=== PATIENT | female | born 1965 | race Caucasian/White ===

== ENCOUNTER 2016-12-13 21:04 | Emergency (ER) | payer MEDICAID, OTHER ==
[~2016-12-13] VITALS: Ht 154.9 cm; Wt 52.8 kg
[~2016-12-13 21:04] MED LIST: CHLO.12%30 SWISH-SPIT; CLIN150 PO; IBUP800T23 PO; MMW SWISH-SPIT; PRED20 PO; SYNT25TA PO
[2016-12-13 21:15] VITALS: O2SAT 98
[2016-12-13 21:36] VITALS: BP 104/83; PULSE 67; RESP 16; TEMP 98; O2SAT 98
[2016-12-14 00:40] VITALS: BP 112/71; PULSE 89; RESP 18; TEMP 98; O2SAT 97
[2016-12-14 02:30] VITALS: BP 114/71; PULSE 82; RESP 18; O2SAT 98
--- NOTE | 2016-12-14 02:48 | RADHPO ---
EXAM DATE/TIME: 12/14/2016 01:32 [facility] COMPARISON: No previous studies available for comparison. INDICATIONS : Cough, shortness of breath for 24 hours MEDICAL HISTORY : None. SURGICAL HISTORY : None. ENCOUNTER: Initial ACUITY: 1 day PAIN SCORE: 0/10 LOCATION: Bilateral chest FINDINGS: The cardiac silhouette is enlarged in transverse diameter. The lungs are free of acute parenchymal op acity. No effusions are identified. Osseous structures are intact. CONCLUSION: Cardiomegaly. No acute cardiopulmonary disease. Giovani Lou MD on December 14, 2016 at 2:46 Board Certified Radiologist. This report was verified electronically.
[2016-12-14] MEDS ORDERED: ZITHTAB PO (03:50)
--- NOTE | 2016-12-14 03:50 | PD ---
HPI Chief Complaint: Cold / Flu Symptoms Time Seen by Provider: 01:15 Travel History International Travel<30 days: No Contact w/Intl Traveler<30days: No Traveled to known affect area: No History of Present Illness HPI 51 year-old female presents to the emergency department for complaint of sinus congestion and cough for the past 2 days. Patient did not have the flu vaccine. Patient has used [id number] medications without relief. Patient complains of frontal headache that worsens with bending forward. Patient complains of increasing sinus congestion and presents for further evaluation. Patient is unable to identify other concerns or complaints no chest pain no abdominal pain no vomiting no diarrhea no dysuria frequency or urgency no joint pain or swelling or skin rash. PFSH Past Medical History Narrative Medical Anemia hypothyroidism previous heart surgery at age 13 pneumonia no tobacco use nursing notes reviewed Anemia: Yes Diminished Hearing: No Endocrine: Yes (Hypothyroid) Thyroid Disease: Yes Tetanus Vaccination: > 5 Years Influenza Vaccination: No ?: Unknown Menopausal: Yes Past Surgical History Cardiac Surgery: Yes ("heart surgery 14 years ago" fluid around heart removed) Hysterectomy: Yes Other Surgery: Yes (CHEST TUBE ON LEFT FROM PNEUMONIA) Social History Alcohol Use: No Tobacco Use: No Substance Use: No Allergies-Medications (Allergen,Severity, Reaction): Coded Allergies: No Known Allergies (Verified , 06/28/16) Reported Meds & Prescriptions Reported Meds & Active Scripts Active Zithromax Z-Ki (Azithromycin) 250 Mg Dspk 250 Mg PO DIRECTED 500 MG (2 tabs) day 1, then 1 tab days 2-5. Reported Synthroid (Levothyroxine Sodium) 25 Mcg Tab 25 Mcg PO DAILY Review of Systems Except as stated in HPI: all other systems reviewed are Neg General / Constitutional: Positive: Chills, No: Fever HENT: Positive: Headaches, Congestion, No: Nosebleed Cardiovascular: No: Chest Pain or Discomfort Respiratory: Positive: Cough Gastrointestinal: No: Vomiting, Abdominal Pain Genitourinary: No: Flank Pain Skin: No Rash Neurologic: No: Weakness Psychiatric: No: Anxiety Hematologic/Lymphatic: No: Lymph Node Enlargement Physical Exam Narrative GENERAL: Well-developed well-nourished female in no acute distress no respiratory distress SKIN: Warm and dry. HEAD: Normocephalic. EYES: No scleral icterus. No injection or drainage. ENT: Airway is patent NECK: Supple, trachea midline. No JVD or lymphadenopathy. No meningismus no nuchal rigidity CARDIOVASCULAR: Regular rate and rhythm without murmurs, gallops, or rubs. RESPIRATORY: Breath sounds equal bilaterally. No accessory muscle use. GASTROINTESTINAL: Abdomen soft, non-tender, nondistended. MUSCULOSKELETAL: No cyanosis, or edema. BACK: Nontender without obvious deformity. No CVA tenderness. Data Data Last Documented VS Vital Signs Date Time Temp Pulse Resp B/P Pulse Ox O2 Delivery O2 Flow Rate FiO2 12/14/16 02:30 82 18 114/71 98 Room Air 12/14/16 00:40 98.0 Orders Chest, Single Ap (12/14/16 ) Influenzae A/B Antigen (12/14/16 01:15) Group A Rapid Strep Screen (12/14/16 01:15) Strep Culture (Group A) (12/14/16 01:20) MDM Medical Decision Making Medical Screen Exam Complete: Yes Emergency Medical Condition: Yes Medical Record Reviewed: Yes Interpretation(s) Rapid strep antigen: Negative Influenza A/B/antigen negative Last Impressions Chest X-Ray 12/14/16 0000 Signed Impressions: Service Date/Time: Wednesday, December 14, 2016 01:32 - CONCLUSION: Cardiomegaly. No acute cardiopulmonary disease. Giovani Lou MD Differential Diagnosis Acute sinusitis, rhinosinusitis, bronchitis, pneumonia Narrative Course Specimens collected and sent for resulting chest x-ray ordered Imaging study no evidence for pneumonia rapid strep antigen negative influenza A /B- plan to start patient on azithromycin Prescription written and identified by patient's nurse to have left without completion of evaluation; informed to notify patient if prescriptions are available. Diagnosis Primary Impression: Sinusitis Referrals: Primary Care Physician call for appointment Patient Instructions: General Instructions Departure Forms: Tests/Procedures, Work Release Special Instructions: no work x 1 day Med/Other Pt SpecificInfo: Prescription(s) given Scripts Azithromycin (Zithromax Z-Ki)250 Mg [id number] Mg PO DIRECTED #1 DSPK Ref 0 500 MG (2 tabs) day 1, then 1 tab days 2-5. Prov:Aisha Bell MD 12/14/16 Disposition: 01 DISCHARGE HOME Condition: Stable Aisha Bell MD Dec 14, 2016 03:50
[2016-12-14] MEDS ORDERED: SYNT25TA PO (06:25)
== END 2016-12-14 03:50 | disposition left against medical advice (07) ==
LOC: PHED 21:04
DX: D64.9 Anemia, unspecified (principal); E03.9 Hypothyroidism, unspecified; J32.9 Chronic sinusitis, unspecified
CPT/HCPCS: 71010; 87081; 87804; 87880; 99283

== ENCOUNTER 2017-08-19 09:23 | Emergency (ER) | payer MEDICAID ==
[~2017-08-19] VITALS: Ht 154.9 cm; Wt 52.5 kg
[~2017-08-19 09:23] MED LIST changes: -CHLO.12%30 SWISH-SPIT; -CLIN150 PO; -IBUP800T23 PO; -MMW SWISH-SPIT; -PRED20 PO; +ZITHTAB PO
[2017-08-19 09:27] VITALS: BP 119/69; PULSE 69; RESP 16; TEMP 98.5; O2SAT 100
--- NOTE | 2017-08-19 09:45 | PD ---
HPI . Sore throat Chief Complaint: ENT Complaint Time Seen by Provider: 09:37 Travel History International Travel<30 days: No Contact w/Intl Traveler<30days: No Traveled to known affect area: No History of Present Illness HPI This patient presents with a chief complaint of a sore throat. Onset was a couple of days ago. It is associated with a fever and nasal congestion. Said her son has the same thing but that he has not sought medical care. His symptoms are spontaneously improving. She believes that her symptoms are worse than his. She describes a burning sensation in her throat which she rates as 8/ 10. It is exacerbated by swallowing. She reports associated swelling of her glands. ON LICENSE OF [facility] Past Medical History Anemia: Yes Diminished Hearing: No Endocrine: Yes (Hypothyroid) Thyroid Disease: Yes Menopausal: Yes Past Surgical History Cardiac Surgery: Yes ("heart surgery 14 years ago" fluid around heart removed) Hysterectomy: Yes Other Surgery: Yes (CHEST TUBE ON LEFT FROM PNEUMONIA) Social History Alcohol Use: No Tobacco Use: No Substance Use: No Allergies-Medications (Allergen,Severity, Reaction): Coded Allergies: No Known Allergies (Verified , 08/19/17) Reported Meds & Prescriptions Reported Meds & Active Scripts Active Reported Synthroid (Levothyroxine Sodium) 25 Mcg Tab 100 Mcg PO DAILY Review of Systems Except as stated in HPI: all other systems reviewed are Neg General / Constitutional: Positive: Fever, Chills HENT: Positive: Sore Throat, Congestion Hematologic/Lymphatic: Positive: Lymph Node Enlargement Physical Exam Narrative GENERAL: Awake and alert and in no acute distress. SKIN: warm/dry. No rash or lesions. HEAD: Normocephalic. Atraumatic. EYES: Pupils equal and round. No scleral icterus. No injection or drainage. ENT: No nasal bleeding or discharge. Mucous membranes pink and moist. Minimal erythema of the oropharynx. No tonsillar enlargement or exudate. No peritonsillar swelling. NECK: Trachea midline. Full range of motion without pain.. Bilateral anterior cervical lymphadenopathy. CARDIOVASCULAR: Regular rate and rhythm. RESPIRATORY: No accessory muscle use. Clear to auscultation. Breath sounds equal bilaterally. MUSCULOSKELETAL: No obvious deformities. NEUROLOGICAL: Awake and alert. No obvious cranial nerve deficits. Motor grossly within normal limits. Normal speech. PSYCHIATRIC: Appropriate mood and affect; insight and judgment normal. Data Data Last Documented VS Vital Signs Date Time Temp Pulse Resp B/P (MAP) Pulse Ox O2 Delivery O2 Flow Rate FiO2 08/19/17 09:27 98.5 69 16 119/69 (86) 100 Orders Orders Group A Rapid Strep Screen (08/19/17 09:37) Strep Culture (Group A) (08/19/17 09:40) MDM Medical Decision Making Medical Screen Exam Complete: Yes Emergency Medical Condition: Yes Differential Diagnosis Differential diagnosis of sore throat includes but is not limited to viral illness, strep throat, mononucleosis, retropharyngeal abscess, peritonsillar abscess Narrative Course This patient presents with a sore throat and fever. She also has nasal congestion. I suspect a viral URI. Rapid strep screen is pending. Rapid strep is negative. Diagnosis Primary Impression: Pharyngitis Qualified Codes: J02.9 - Acute pharyngitis, unspecified Patient Instructions: General Instructions, Pharyngitis (DC) Additional Instructions: Warm salt water gargles. Throat lozenges. Tylenol and/or ibuprofen as needed for fever, body aches and throat pain. Disposition: 01 DISCHARGE HOME Condition: Stable Tavia Rossi MD Aug 19, 2017 09:45
== END 2017-08-19 10:33 | disposition home or self-care (01) ==
LOC: PHED 09:23
DX: J02.9 Acute pharyngitis, unspecified (principal); R50.9 Fever, unspecified; R09.81 Nasal congestion; R59.0 Localized enlarged lymph nodes; E03.9 Hypothyroidism, unspecified; Z86.2 Personal history of diseases of the blood and blood-forming organs and certain disorders involving the immune mechanism
CPT/HCPCS: 87081; 87880; 99283

== ENCOUNTER 2018-01-20 08:03 | Emergency (ER) | payer MEDICAID ==
[~2018-01-20] VITALS: Ht 154.9 cm; Wt 52.6 kg
[~2018-01-20 08:03] MED LIST changes: -ZITHTAB PO
[2018-01-20 08:08] VITALS: BP 114/56; PULSE 63; RESP 16; TEMP 97.9; O2SAT 98
[2018-01-20] MEDS ORDERED: CHOL MED (08:11)
[2018-01-20] MEDS ORDERED: LEVO125T4 PO (08:11)
--- NOTE | 2018-01-20 08:32 | PD ---
HPI Chief Complaint: Pain: Acute or Chronic Time Seen by Provider: 08:31 Travel History International Travel<30 days: No Contact w/Intl Traveler<30days: No Traveled to known affect area: No History of Present Illness HPI 52-year-old female came to the emergency room with history of right sided scapular pain for past 3-4 days that radiates now to the front of the chest close to the apex. Patient says that taking a deep breath hurts as well as moving the right arm especially lifting her arm up. Patient works in [employer] and carries a lot of heavy stuff. Patient does not recall falling or injuring herself however. Patient has history of high cholesterol and thyroid issues. She does have a primary care physician. Patient has been taking over-the- counter Advil but not helping. PFSH Past Medical History Narrative Medical List of her past medical, surgical, social and family history is reviewed from the nursing note. Hx Anticoagulant Therapy: No Anemia: Yes Cardiovascular Problems: Yes (CHOL) Diabetes: No Diminished Hearing: No Endocrine: Yes (Hypothyroid) Thyroid Disease: Yes Tetanus Vaccination: Unknown ?: Not Menopausal: Yes Past Surgical History Cardiac Surgery: Yes ("heart surgery 14 years ago" fluid around heart removed) Hysterectomy: Yes Other Surgery: Yes (CHEST TUBE ON LEFT FROM PNEUMONIA) Social History Alcohol Use: No Tobacco Use: No Substance Use: No Allergies-Medications (Allergen,Severity, Reaction): Coded Allergies: No Known Allergies (Verified Adverse Reaction, Unknown, 01/20/18) Comments No known drug allergies. Reported Meds & Prescriptions Reported Meds & Active Scripts Active Flexeril (Cyclobenzaprine HCl) 5 Mg Tab 5 Mg PO TID Ibuprofen 600 Mg Tab 600 Mg PO Q6H PRN Reported [Chol Med] Levothyroxine (Levothyroxine Sodium) 125 Mcg Tab 125 Mcg PO DAILY Narrative Medication List of her home medications reviewed from the nursing note Review of Systems Except as stated in HPI: all other systems reviewed are Neg Cardiovascular: Positive: Chest Pain or Discomfort Musculoskeletal: Positive: Pain Physical Exam Narrative GENERAL: Awake, alert, moderate distress SKIN: Focused skin assessment warm/dry. HEAD: Atraumatic. Normocephalic. EYES: Pupils equal and round. No scleral icterus. No injection or drainage. ENT: No nasal bleeding or discharge. Mucous membranes pink and moist. NECK: Trachea midline. No JVD. CARDIOVASCULAR: Regular rate and rhythm. No murmur appreciated. RESPIRATORY: No accessory muscle use. Clear to auscultation. Breath sounds equal bilaterally. GASTROINTESTINAL: Abdomen soft, non-tender, nondistended. Hepatic and splenic margins not palpable. MUSCULOSKELETAL: No obvious deformities. No clubbing. No cyanosis. No edema. Decreased range of motion on abduction, flexion, extension at the right shoulder joint mainly due to the pain. Significant tenderness on the right scapular area medial to the scapula as well as anterior chest wall apex. NEUROLOGICAL: Awake and alert. No obvious cranial nerve deficits. Motor grossly within normal limits. Normal speech. PSYCHIATRIC: Appropriate mood and affect; insight and judgment normal. Data Data Last Documented VS Orders Orders Ketorolac Inj (Toradol Inj) (01/20/18 09:00) Acetamin-Hydrocod 325-5 Mg ([place] 5-325 (01/20/18 09:00) Chest, Pa & Lat (01/20/18 ) Orphenadrine Inj (Norflex Inj) (01/20/18 09:00) Ed Discharge Order (01/20/18 10:13) [facility] Medical Decision Making Medical Screen Exam Complete: Yes Emergency Medical Condition: Yes Medical Record Reviewed: Yes Differential Diagnosis Rib fracture, musculoskeletal pain Narrative Course 10:16 AM patient was medicated for pain and muscle relaxation. Patient says initially it was 9 out of 10 pain and now it's come down to 7 out of 10. I'm comfortable discharging her at this point. She will go home with instructions to follow up with the primary care Procedures EKG Prior to Arrival: No Diagnosis Primary Impression: Musculoskeletal pain Referrals: Primary Care Physician Departure Forms: Tests/Procedures, Work Release Enter return to work date: Jan 23, 2018 Additional Instructions: Return to the emergency room if the condition worsens or any other new concerns. If the pain persists in spite of the medication and the warm alternating with cold compress the knee should follow-up with your primary care at which point either a CAT scan or an MRI would be indicated. Take the medication as per the prescription direction. The muscle relaxant will make you little groggy and hence he should not be driving. Med/Other Pt SpecificInfo: Prescription(s) given Scripts Cyclobenzaprine (Flexeril) 5 Mg Tab 5 MG PO TID for Muscle Spasm, #21 TAB 0 Refills Prov: Anitra Muse MD 01/20/18 Ibuprofen (Ibuprofen) 600 Mg Tab 600 MG PO Q6H Y for Pain/Inflammation, #40 TAB 0 Refills Prov: Anitra Muse MD 01/20/18 Disposition: 01 DISCHARGE HOME Condition: Stable Anitra Muse MD Jan 20, 2018 08:32
[2018-01-20] MEDS ORDERED: KETOROLAC TROMETHAMINE 60 MG/2 ML (IM) VIAL IM ONE (09:00)
[2018-01-20] MEDS ORDERED: ORPHENADRINE INJ 60 MG/2 ML AMP IM ONE (09:00)
[2018-01-20] MEDS ORDERED: ACETAMINOPHEN/HYDROcodone 325 MG/5 MG TAB PO ONE (09:00)
--- NOTE | 2018-01-20 09:19 | RADRPT ---
EXAM DATE/TIME: 01/20/2018 09:08 [facility] COMPARISON: No previous studies available for comparison. INDICATIONS : Right chest discomfort. MEDICAL HISTORY : None. SURGICAL HISTORY : None. ENCOUNTER: Initial ACUITY: 1 day PAIN SCORE: 3/10 LOCATION: Right anterior chest. FINDINGS: PA and lateral views of the chest demonstrate the lungs to be symmetrically aerated without evidence of mass, infiltrate or effusion. The cardiomediastinal contours are unremarkable. Osseous structure s are intact. CONCLUSION: No acute disease. Bunny Haas MD on January 20, 2018 at 9:16 Board Certified Radiologist. This report was verified electronically.
[2018-01-20] MEDS ORDERED: CYCL5TAB PO (10:18)
[2018-01-20] MEDS ORDERED: IBUP-232 PO (10:18)
== END 2018-01-20 10:49 | disposition home or self-care (01) ==
LOC: PHEFT 08:03
DX: M79.1 Myalgia (principal); E03.9 Hypothyroidism, unspecified; E78.00 Pure hypercholesterolemia, unspecified
CPT/HCPCS: 71046; 96372; 99284; J1885; J2360